=== PATIENT | female | born 1995 | race Caucasian/White ===

== ENCOUNTER 2017-07-09 14:08 | Emergency (ER) | payer MEDICAID, OTHER ==
[2017-07-09 14:22] VITALS: BP 112/63
--- NOTE | 2017-07-09 14:43 | ER Document Report ---
ED Headache - General Chief Complaint: Headache >24 hrs old Stated Complaint: HEADACHE Time Seen by Provider: 07/09/17 14:38 Mode of Arrival: Ambulatory Information source: Patient TRAVEL OUTSIDE OF THE [place] IN LAST 30 DAYS: No - HPI Patient complains to provider of: Headache, "Migraine" - pt is approx 15 weeks and is visiting from [place]. She states she was recently diagnosed with migraine CLARK but has no medication currently. She states her pain has gotten worse - Related Data Allergies/Adverse Reactions: No Known Allergies Allergy (Verified 07/09/17 14:09) Past Medical History - Social History Smoking Status: Never Smoker Cigarette use (# per day): No Chew tobacco use (# tins/day): No Frequency of alcohol use: None Drug Abuse: None Family History: None Patient has suicidal ideation: No Patient has homicidal ideation: No Pulmonary Medical History: Denies: Hx Asthma Neurological Medical History: Reports: Hx Migraine Endocrine Medical History: Denies: Hx Diabetes Mellitus Type 1, Hx Diabetes Mellitus Type 2 Renal/ Medical History: Denies: Hx Peritoneal Dialysis - Immunizations Immunizations up to date: Yes Hx Diphtheria, Pertussis, Tetanus Vaccination: Yes Review of Systems - Review of Systems Constitutional: No symptoms reported EENT: No symptoms reported Cardiovascular: No symptoms reported Respiratory: No symptoms reported Gastrointestinal: No symptoms reported Neurological/Psychological: See HPI, Headaches -: Yes All other systems reviewed and negative Physical Exam - Vital signs Vitals: Temp Pulse Resp BP Pulse Ox 98.9 F 101 H 20 112/63 97 07/09/17 14:21 07/09/17 14:21 07/09/17 14:21 07/09/17 14:21 07/09/17 14:21 - General General appearance: Appears well In distress: Mild - HEENT Head: Normocephalic Pharynx: Normal Neck: Normal - Respiratory Respiratory status: No respiratory distress Breath sounds: Normal - Cardiovascular Rhythm: Regular Heart sounds: Normal auscultation - Abdominal Inspection: Normal Tenderness: Nontender Course - Re-evaluation Re-evalutation: 07/09/17 14:40 pt. has refused to stay and will sign out AMA - Vital Signs Vital signs: Temp Pulse Resp BP Pulse Ox 98.9 F 101 H 20 112/63 97 07/09/17 14:21 07/09/17 14:21 07/09/17 14:21 07/09/17 14:21 07/09/17 14:21 Discharge - Discharge Clinical Impression: Cephalalgia Qualifiers: Headache type: unspecified Headache chronicity pattern: acute headache Intractability: not intractable Qualified Code(s): R51 - Headache Condition: Stable Disposition: HOME, SELF-CARE Additional Instructions: rest, take meds as prescribed, return if worse Prescriptions: Sumatriptan Succinate [Imitrex 25 mg Tablet] 25 mg PO ASDIR PRN #9 tablet PRN Reason:
== END 2017-07-09 14:44 | disposition left against medical advice (07) ==
LOC: ER 14:08
DX: O26.899 Other specified pregnancy related conditions, unspecified trimester (principal); R51 Headache; Z3A.00 Weeks of gestation of pregnancy not specified; Z53.20 Procedure and treatment not carried out because of patient's decision for unspecified reasons
CPT/HCPCS: 99283

== ENCOUNTER 2017-07-09 17:13 | Emergency (ER) | payer MEDICAID ==
--- NOTE | 2017-07-09 18:02 | ER Document Report ---
ED Medical Screen (RME) - General Chief Complaint: Headache >24 hrs old Stated Complaint: HEADACHE Time Seen by Provider: 07/09/17 17:59 Mode of Arrival: Ambulatory Information source: Patient TRAVEL OUTSIDE OF THE [place] IN LAST 30 DAYS: No - HPI Patient complains to provider of: migraine CLARK; Onset: Yesterday - Pt states she is 15 weeks and has had a migraine CLARK since yesterday. She was given a Rx for imitrex earlier in the day but was unable to get it filled . - Related Data Allergies/Adverse Reactions: No Known Allergies Allergy (Verified 07/09/17 17:16) Past Medical History - Social History Family history: None Pulmonary Medical History: Denies: Hx Asthma Neurological Medical History: Reports: Hx Migraine Endocrine Medical History: Denies: Hx Diabetes Mellitus Type 1, Hx Diabetes Mellitus Type 2 Renal/ Medical History: Denies: Hx Peritoneal Dialysis - Immunizations Immunizations up to date: Yes Hx Diphtheria, Pertussis, Tetanus Vaccination: Yes Physical Exam - Vital signs Vitals: Temp Pulse Resp BP Pulse Ox 98.5 F 105 H 16 106/60 96 07/09/17 17:22 07/09/17 17:22 07/09/17 17:22 07/09/17 17:22 07/09/17 17:22 Course - Vital Signs Vital signs: Temp Pulse Resp BP Pulse Ox 98.5 F 105 H 16 106/60 96 07/09/17 17:22 07/09/17 17:22 07/09/17 17:22 07/09/17 17:22 07/09/17 17:22
[2017-07-09 18:25] LABS: ABSOLUTE LYMPHOCYTES (AUTO) 1.9 10^3/uL (0.5-4.7); ABSOLUTE MONOCYTES (AUTO) 0.4 10^3/uL (0.1-1.4); ABSOLUTE NEUT (AUTO) 8.9 10^3/uL (1.7-8.2); BASOPHILS % (AUTO) 0.3 % (0-2); EOSINOPHILS % (AUTO) 0.2 % (0-6); HEMATOCRIT 37.2 % (36.0-47.0); HEMOGLOBIN 12.6 g/dL (12.0-15.5); MEAN CORPUSCULAR HEMOGLOBIN 29.4 pg (27.0-33.4); MEAN CORPUSCULAR HGB CONC 33.9 g/dL (32.0-36.0); MEAN CORPUSCULAR VOLUME 87 fl (80-97); PLATELET COUNT 204 10^3/uL (150-450); RED BLOOD COUNT 4.29 10^6/uL (3.72-5.28); RED CELL DISTRIBUTION WIDTH 13.5 % (11.5-14.0); SEGMENTED NEUTROPHILS % (AUTO) 78.5 % (42-78); TOTAL CELLS COUNTED % (AUTO) 100 %; WHITE BLOOD COUNT 11.3 10^3/uL (4.0-10.5)
[2017-07-09 18:35] LABS: APPEARANCE,URINE SLIGHTLY-CLOUDY; BILIRUBIN,URINE NEGATIVE (NEGATIVE); COLOR,URINE YELLOW; GLUCOSE, URINE NEGATIVE (NEGATIVE); KETONES,URINE TRACE mg/dL (NEGATIVE); LEUKOCYTE ESTERASE,URINE TRACE (NEGATIVE); NITRITE,URINE NEGATIVE (NEGATIVE); PROTEIN,URINE NEGATIVE (NEGATIVE); URINE SPECIFIC GRAVITY 1.019; UROBILINOGEN,URINE NEGATIVE mg/dL (<2.0)
[2017-07-09 18:42] LABS: ALANINE AMINOTRANSFERASE 24 U/L (9-52); ALBUMIN 3.9 g/dL (3.5-5.0); ALKALINE PHOSPHATASE 54 U/L (38-126); ANION GAP 9 (5-19); ASPARTATE AMINO TRANSFERASE 17 U/L (14-36); BILIRUBIN,DIRECT 0.3 mg/dL (0.0-0.4); BILIRUBIN,TOTAL 0.4 mg/dL (0.2-1.3); BLOOD UREA NITROGEN 7 mg/dL (7-20); CALCIUM 9.7 mg/dL (8.4-10.2); CARBON DIOXIDE 25 mmol/L (22-30); CHLORIDE 104 mmol/L (98-107); GLUCOSE 125 mg/dL (75-110); POTASSIUM 3.5 mmol/L (3.6-5.0); SODIUM 137.8 mmol/L (137-145); TOTAL PROTEIN 6.4 g/dL (6.3-8.2)
[2017-07-09] MEDS ORDERED: NORMAL SALINE 1000 ML 1,000 ML IV ONE (20:07)
[2017-07-09] MEDS ORDERED: METOCLOPRAMIDE HCL INJ/PF 10 MG/2 ML SDV IV ONE (20:07)
[2017-07-09] MEDS ORDERED: DIPHENHYDRAMINE HCL 50 MG/ML VIAL IV ONE (20:07)
[2017-07-09] MEDS ORDERED: METOCLOPRAMIDE HCL 10 MG TABLET PO ONE (20:26)
[2017-07-09] MEDS ORDERED: ACETAMINOPHEN 325 MG TABLET PO ONE (20:26)
--- NOTE | 2017-07-09 20:30 | ER Document Report ---
ED Headache - General Chief Complaint: Headache >24 hrs old Stated Complaint: HEADACHE Time Seen by Provider: 07/09/17 17:59 Mode of Arrival: Ambulatory Information source: Patient Notes: Patient is a 22-year-old at approximately 16 weeks who presents to the ER today for migraine headache 3 days. Patient was seen here yesterday and given a prescription for Imitrex which she did not have filled because she had to go work. Patient comes back for the same headache that feels like it is all over her head. Patient denies any nausea, vomiting but admits to light sensitivity and sometimes sound sensitivity. She denies any fevers or chills, dizziness or blurred vision. She has been having these headaches since the beginning of this . TRAVEL OUTSIDE OF THE [place] IN LAST 30 DAYS: No - Related Data Allergies/Adverse Reactions: No Known Allergies Allergy (Verified 07/09/17 17:16) Past Medical History - General Information source: Patient - Social History Smoking Status: Never Smoker Frequency of alcohol use: None Drug Abuse: None Family History: None Patient has suicidal ideation: No Patient has homicidal ideation: No Pulmonary Medical History: Denies: Hx Asthma Neurological Medical History: Reports: Hx Migraine Endocrine Medical History: Denies: Hx Diabetes Mellitus Type 1, Hx Diabetes Mellitus Type 2 Renal/ Medical History: Denies: Hx Peritoneal Dialysis - Immunizations Immunizations up to date: Yes Hx Diphtheria, Pertussis, Tetanus Vaccination: Yes Review of Systems - Review of Systems Constitutional: No symptoms reported EENT: No symptoms reported Cardiovascular: No symptoms reported Respiratory: No symptoms reported Gastrointestinal: No symptoms reported Genitourinary: No symptoms reported Female Genitourinary: See HPI Musculoskeletal: No symptoms reported Skin: No symptoms reported Hematologic/Lymphatic: No symptoms reported Neurological/Psychological: See HPI Physical Exam - Vital signs Vitals: Temp Pulse Resp BP Pulse Ox 98.5 F 105 H 16 106/60 96 07/09/17 17:22 07/09/17 17:22 07/09/17 17:22 07/09/17 17:22 07/09/17 17:22 - Notes Notes: PHYSICAL EXAMINATION: GENERAL: Well-appearing and in no acute distress. HEAD: Atraumatic, normocephalic. EYES: Pupils equal round and reactive to light, extraocular movements intact, sclera anicteric, conjunctiva are normal. NECK: Normal range of motion, supple without lymphadenopathy LUNGS: CTAB and equal. No wheezes rales or rhonchi. HEART: Regular rate and rhythm without murmurs EXTREMITIES: Normal range of motion, no pitting edema. No cyanosis. NEUROLOGICAL: Cranial nerves grossly intact. Normal sensory/motor exams. Good and equal strength bilaterally, Kernig and Brudzinski's signs negative, Romberg' s test normal, normal heel to bellamy testing PSYCH: Normal mood, normal affect. SKIN: Warm, Dry, normal turgor, no rashes or lesions noted Course - Re-evaluation Re-evalutation: 07/09/17 20:29 Patient actually feels better upon my evaluation and refuses IV medications. She states that she will get the Imitrex prescription she has filled tomorrow and I will send her home after giving her a dose of Reglan and Tylenol here in the emergency department. She is drinking ice water without any difficulty. - Vital Signs Vital signs: Temp Pulse Resp BP Pulse Ox 98.5 F 105 H 16 106/60 96 07/09/17 17:22 07/09/17 17:22 07/09/17 17:22 07/09/17 17:22 07/09/17 17:22 - Laboratory Result Diagrams: 07/09/17 18:10 07/09/17 18:10 Laboratory results interpreted by me: 07/09/17 07/09/17 07/09/17 18:10 18:10 18:10 WBC 11.3 H Seg Neutrophils % 78.5 H Absolute Neutrophils 8.9 H Potassium 3.5 L Glucose 125 H Urine Ketones TRACE H Urine Blood SMALL H Ur Leukocyte Esterase TRACE H Urine HCG, Qual POSITIVE H Discharge - Discharge Clinical Impression: Headache Qualifiers: Headache type: unspecified Headache chronicity pattern: acute headache Intractability: not intractable Qualified Code(s): R51 - Headache Condition: Stable Disposition: HOME, SELF-CARE Instructions: Headache ([facility]) Additional Instructions: Return immediately for any new or worsening symptoms. Follow up with primary care provider, call tomorrow to make followup appointment. Referrals: OLAYINKA WINTER MD [Primary Care Provider] - Follow up as needed
[2017-07-09 20:48] VITALS: BP 110/61
== END 2017-07-09 20:55 | disposition home or self-care (01) ==
LOC: ER 17:13
DX: O99.350 Diseases of the nervous system complicating pregnancy, unspecified trimester (principal); G43.909 Migraine, unspecified, not intractable, without status migrainosus; Z3A.00 Weeks of gestation of pregnancy not specified
CPT/HCPCS: 99283; 36415; 85025; 81025; 80053; 81001; J3490 ×2

== ENCOUNTER 2017-07-18 08:34 | Emergency (ER) | payer MEDICAID ==
[2017-07-18] MEDS ORDERED: PROMETHAZINE HCL 25 MG TABLET PO ONE (10:31)
[2017-07-18] MEDS ORDERED: DIPHENHYDRAMINE HCL 50 MG/ML VIAL IV ONE (10:31)
--- NOTE | 2017-07-18 10:34 | ER Document Report ---
ED General - General Chief Complaint: Headache Stated Complaint: HEADACHE, BACK PAIN, NUMBNESS IN LEGS/ARM/LIP Time Seen by Provider: 07/18/17 10:25 Mode of Arrival: Ambulatory Information source: Patient Notes: 22-year-old female presents with complaints of migraine headache. Patient states she has had migraines her whole life, notes when she sleeps and awakens she is to migraines. She states she has been seen multiple times for this is always the same where her lips will go numb and her arm goes numb. Patient admits to nausea with these symptoms. She states she did vomit multiple times and had streaks of blood this morning. Patient denies any fevers or chills denies any neck pain or stiffness TRAVEL OUTSIDE OF THE [place] IN LAST 30 DAYS: No - HPI Onset: Other Onset/Duration: Intermittent Quality of pain: Pressure Severity: Mild Pain Level: 1 Associated symptoms: Headache, Nausea, Vomiting Exacerbated by: Denies Relieved by: Denies Similar symptoms previously: Yes Recently seen / treated by doctor: Yes - Related Data Allergies/Adverse Reactions: No Known Allergies Allergy (Verified 07/18/17 08:35) Past Medical History - Social History Smoking Status: Never Smoker Cigarette use (# per day): No Chew tobacco use (# tins/day): No Smoking Education Provided: No Frequency of alcohol use: None Drug Abuse: None Family History: None Patient has suicidal ideation: No Patient has homicidal ideation: No Pulmonary Medical History: Denies: Hx Asthma Neurological Medical History: Reports: Hx Migraine Endocrine Medical History: Denies: Hx Diabetes Mellitus Type 1, Hx Diabetes Mellitus Type 2 Renal/ Medical History: Denies: Hx Peritoneal Dialysis - Immunizations Immunizations up to date: Yes Hx Diphtheria, Pertussis, Tetanus Vaccination: Yes Review of Systems - Review of Systems Notes: REVIEW OF SYSTEMS: CONSTITUTIONAL : Denies fever, chills, or sweats. Denies recent illness. EENT: Denies eye, ear, throat, or mouth pain or symptoms. Denies nasal or sinus congestion or discharge. Denies throat, tongue, or mouth swelling or difficulty swallowing. CARDIOVASCULAR: Denies chest pain. Denies palpitations or racing or irregular heart beat. Denies ankle edema. RESPIRATORY: Denies cough, cold, or chest congestion. Denies shortness of breath, difficulty breathing, or wheezing. GASTROINTESTINAL: Admits nausea vomiting GENITOURINARY: Denies difficulty urinating, painful urination, burning, frequency, blood in urine, or discharge. FEMALE GENITOURINARY: Denies vaginal bleeding, heavy or abnormal periods, irregular periods. Denies vaginal discharge or odor. MUSCULOSKELETAL: Denies back or neck pain or stiffness. Denies joint pain or swelling. SKIN: Denies rash, lesions or sores. HEMATOLOGIC : Denies easy bruising or bleeding. LYMPHATIC: Denies swollen, enlarged glands. NEUROLOGICAL: Headaches with paresthesia PSYCHIATRIC: Denies anxiety or stress. Denies depression, suicidal ideation, or homicidal ideation. ALL OTHER SYSTEMS REVIEWED AND NEGATIVE. PHYSICAL EXAMINATION: GENERAL: Well-appearing, well-nourished and in no acute distress. HEAD: Atraumatic, normocephalic. EYES: Pupils equal round and reactive to light, extraocular movements intact, conjunctiva are normal. ENT: Nares patent, oropharynx clear without exudates. Moist mucous membranes. NECK: Normal range of motion, supple without lymphadenopathy LUNGS: Breath sounds clear to auscultation bilaterally and equal. No wheezes rales or rhonchi. HEART: Regular rate and rhythm without murmurs ABDOMEN: Soft, nontender, nondistended abdomen. No guarding, no rebound. No masses appreciated. Female : deferred Musculoskeletal: Normal range of motion, no pitting or edema. No cyanosis. NEUROLOGICAL: Cranial nerves grossly intact. Normal speech, normal gait. Normal sensory, motor exams PSYCH: Normal mood, normal affect. SKIN: Warm, Dry, normal turgor, no rashes or lesions noted. Dictation was performed using [employer] voice recognition software Physical Exam - Vital signs Vitals: Temp Pulse Resp BP Pulse Ox 98.7 F 100 20 116/64 97 07/18/17 08:39 07/18/17 08:39 07/18/17 08:39 07/18/17 08:39 07/18/17 08:39 Course - Re-evaluation Re-evalutation: 07/18/17 10:33 Patient currently has no neurological symptoms looks well is in no distress, patient will be treated with Benadryl and Phenergan given her status. She otherwise is in no distress 07/18/17 12:05 Patient notes significant improvement of her migraine headache. I will discharge home with Phenergan for nausea, I will place her on Pepcid to help with the streaks of blood as well After performing a Medical Screening Examination, I estimate there is LOW risk for ACUTE GLAUCOMA, TEMPORAL ARTERITIS, MENINGITIS, INCRANIAL HEMORRHAGE, or ISCHEMIC STROKE thus I consider the discharge disposition reasonable. I have reevaluated this patient multiple times and no significant life threatening changes are noted. The patient and I have discussed the diagnosis and risks, and we agree with discharging home with close follow-up with the understanding that symptoms and presentations can change. We also discussed returning to the Emergency Department immediately if new or worsening symptoms occur. We have discussed the symptoms which are most concerning (e.g., changing or worsening symptoms, new numbness or weakness, vomiting, fever) that necessitate immediate return. - Vital Signs Vital signs: Temp Pulse Resp BP Pulse Ox 98.7 F 100 20 116/64 97 07/18/17 08:39 07/18/17 08:39 07/18/17 08:39 07/18/17 08:39 07/18/17 08:39 Discharge - Discharge Clinical Impression: Nausea & vomiting Qualifiers: Vomiting type: unspecified Vomiting Intractability: non-intractable Qualified Code(s): R11.2 - Nausea with vomiting, unspecified Migraine headache Qualifiers: Migraine type: unspecified Status migrainosus presence: without status migrainosus Intractability: not intractable Qualified Code(s): G43.909 - Migraine, unspecified, not intractable, without status migrainosus Condition: Stable Disposition: HOME, SELF-CARE Instructions: Vomiting ([facility]) Prescriptions: Diphenhydramine HCl [Benadryl 50 mg Capsule] 1 cap PO Q6 PRN #20 capsule PRN Reason: Promethazine HCl [Phenergan 25 mg Tablet] 1 - 2 tab PO Q6H PRN #15 tablet PRN Reason: Referrals: PAULINA PAUL MD [ACTIVE STAFF] - Follow up tomorrow
[2017-07-18 12:04] LABS: APPEARANCE,URINE SLIGHTLY-CLOUDY; BILIRUBIN,URINE NEGATIVE (NEGATIVE); COLOR,URINE YELLOW; GLUCOSE, URINE NEGATIVE (NEGATIVE); KETONES,URINE NEGATIVE (NEGATIVE); LEUKOCYTE ESTERASE,URINE NEGATIVE (NEGATIVE); NITRITE,URINE NEGATIVE (NEGATIVE); PROTEIN,URINE NEGATIVE (NEGATIVE); URINE SPECIFIC GRAVITY 1.015; UROBILINOGEN,URINE NEGATIVE mg/dL (<2.0)
[2017-07-18 12:22] VITALS: BP 111/61
== END 2017-07-18 12:21 | disposition home or self-care (01) ==
LOC: ER 08:34
DX: G43.909 Migraine, unspecified, not intractable, without status migrainosus (principal); K92.0 Hematemesis; R20.0 Anesthesia of skin
CPT/HCPCS: 99283; 96374; 81001; J1200; J3490